=== PATIENT | female | born 1970 ===

== ENCOUNTER 2018-12-06 08:44 | Emergency (ER) | payer OTHER ==
[~2018-12-06] VITALS: Ht 162.6 cm; Wt 77.1 kg
[~2018-12-06 08:44] MED LIST: LEXAPRO5 MG; PROGESTERONE50 MG/M1
[2018-12-08] MEDS ORDERED: ASA325 MG PO (16:23)
[2018-12-08] MEDS ORDERED: PERCOCET 5-3251 EACH PO (16:23)
[2018-12-08] MEDS ORDERED: DUI500 PO (16:23)
== END 2018-12-06 12:44 | disposition home or self-care (01) ==
LOC: ER 08:44
DX: S82.492A Other fracture of shaft of left fibula, initial encounter for closed fracture (principal); W18.39XA Other fall on same level, initial encounter; Y93.89 Activity, other specified; Y92.098 Other place in other non-institutional residence as the place of occurrence of the external cause; Y99.8 Other external cause status

== ENCOUNTER → 2018-12-08 | Day surgery (SDC) | payer OTHER ==
[~2018-12-08] MED LIST changes: +ASA325 MG PO; +DUI500 PO; +PERCOCET 5-3251 EACH PO
== END | disposition home or self-care (01) ==
LOC: CIR.AMB 11:02
DX: S82.242A Displaced spiral fracture of shaft of left tibia, initial encounter for closed fracture (principal); S82.422A Displaced transverse fracture of shaft of left fibula, initial encounter for closed fracture